=== PATIENT | male | born 1955 | race African-American/Black ===

== ENCOUNTER 2019-12-18 08:48 | Emergency (ER) | payer OTHER ==
[~2019-12-18] VITALS: Ht 185.4 cm; Wt 94.0 kg
[2019-12-18] MEDS: IV NORMAL SALINE 1,000ML 1,000 ML IV ONE (09:18)
--- NOTE | 2019-12-18 09:25 | PHYS DOC ---
General Adult EDM: Chief Complaint: HYPERGLYCEMIA HPI: HPI: 64-year-old male presents with concerns about his blood sugar. The patient takes his metformin every day, but does not obese take his atorvastatin or his Invokana. He has been urinating a lot during the day and night. He feels sluggish and tired. He is in the process of establishing with a new primary care physician here in town. He is just feeling rundown and thought he should come get things checked out. He denies fever chills. He has no other symptoms of illness. Review of Systems: Review of Systems: Constitutional: fatigue. Denies fever or chills Eyes: Denies change in visual acuity HENT: Denies nasal congestion or sore throat Respiratory: Denies cough or shortness of breath Cardiovascular: Denies chest pain or edema GI: Denies abdominal pain, nausea, vomiting, bloody stools or diarrhea : Urinary frequency. Denies dysuria Musculoskeletal: Denies back pain or joint pain Integument: Denies rash Neurologic: Denies headache, focal weakness or sensory changes Endocrine: Denies polyuria or polydipsia Lymphatic: Denies swollen glands Psychiatric: Denies depression or anxiety Heart Score: Risk Factors: Risk Factors: DM, Current or recent (<one month) smoker, HTN, HLP, family history of CAD, obesity. Risk Scores: Score 0 - 3: 2.5% MACE over next 6 weeks - Discharge Home Score 4 - 6: 20.3% MACE over next 6 weeks - Admit for Clinical Observation Score 7 - 10: 72.7% MACE over next 6 weeks - Early Invasive Strategies Current Medications: Current Meds: Current Medications Medications (Trade) Dose Ordered Sig/Jesica Start Time Stop Time Status Last Admin Dose Admin Sodium Chloride 1,000 ml @ 1,000 mls/hr 1X ONCE 12/18/19 09:00 12/18/19 09:59 12/18/19 09:18 1,000 MLS/HR Allergies: Allergies: Allergies Coded Allergies Type Severity Reaction Last Updated Verified No Known Drug Allergies 12/18/19 No Physical Exam: PE: Constitutional: Well developed, well nourished, no acute distress, non-toxic appearance. [] HENT: Normocephalic, atraumatic, bilateral external ears normal, oropharynx moist, no oral exudates, nose normal. [] Eyes: PERRLA, EOMI, conjunctiva normal, no discharge. [] Neck: Normal range of motion, no tenderness, supple, no stridor. [] Cardiovascular:Heart rate regular rhythm, no murmur [] Lungs & Thorax: Bilateral breath sounds clear to auscultation [] Abdomen: Bowel sounds normal, soft, no tenderness, no masses, no pulsatile masses. [] Skin: Warm, dry, no erythema, no rash. [] Back: No tenderness, no CVA tenderness. [] Extremities: No tenderness, no cyanosis, no clubbing, ROM intact, no edema. [] Neurologic: Alert and oriented X 3, normal motor function, normal sensory function, no focal deficits noted. [] Psychologic: Affect normal, judgement normal, mood normal. [] Current Patient Data: Labs: Laboratory Tests Test 12/18/19 09:00 Glucose (Fingerstick) 279 mg/dL (70-99) H EKG: EKG: [] Radiology/Procedures: Radiology/Procedures: [] Course & Med Decision Making: Course & Med Decision Making Pertinent Labs and Imaging studies reviewed. (See chart for details) The patient's labs are unremarkable except for an elevated blood sugar and a slightly elevated creatinine. His anion gap is normal. The patient's urinalysis is negative for infection but he is spilling significant glucose. I believe the patient's symptoms are related to his uncontrolled diabetes. I have encouraged him to take his medications as prescribed and to follow-up closely with his physician once he gets 1 established. He is stable for discharge at this time. [] Sasha Disclaimer: Sasha Disclaimer: This electronic medical record was generated, in whole or in part, using a voice recognition dictation system. Departure Departure: Impression: Primary Impression: Hyperglycemia Disposition: HOME, SELF-CARE Condition: STABLE Referrals: PCP,JUNG (PCP) Patient Instructions: Hyperglycemia, [id number] ARMIN RAJPUT DO Dec 18, 2019 09:25
[2019-12-18 09:36] LABS: BASO % 1 % (0-3); EOS % 0 % (0-3); HEMATOCRIT 51.5 % (39.0-53.0); HEMOGLOBIN 17.4 g/dL (13.0-17.5); LYMPH # 0.7 x10^3/uL (1.0-4.8); LYMPH % 13 % (24-48); MEAN CORPUSCULAR HEMOGLOBIN 28 pg (25-35); MEAN CORPUSCULAR HGB CONC 34 g/dL (31-37); MEAN CORPUSCULAR VOLUME 83 fL (79-100); MONO # 0.5 x10^3/uL (0.0-1.1); MONO % 10 % (0-9); NEUT # 3.9 x10^3uL (1.8-7.7); NEUT % 76 % (31-73); PLATELET COUNT 219 x10^3/uL (140-400); RED BLOOD COUNT 6.19 x10^6/uL (4.30-5.70); RED CELL DISTRIBUTION WIDTH 12.4 % (11.5-14.5); WHITE BLOOD COUNT 5.1 x10^3/uL (4.0-11.0)
[2019-12-18 09:42] LABS: CALCIUM 9.4 mg/dL (8.5-10.1); CREATININE 1.4 mg/dL (0.7-1.3); GFR 61.9
[2019-12-18 09:43] LABS: POTASSIUM 4.5 mmol/L (3.5-5.1)
[2019-12-18 09:48] LABS: ALBUMIN 3.1 g/dL (3.4-5.0); ALBUMIN/GLOBULIN RATIO 0.6 (1.0-1.7); TOTAL BILIRUBIN 0.7 mg/dL (0.2-1.0); TOTAL PROTEIN 7.9 g/dL (6.4-8.2)
[2019-12-18 12:27] VITALS: BP 133/74
[2019-12-18 12:27] LABS: COLOR,URINE YELLOW
[2019-12-18 12:28] LABS: BACTERIA,URINE 0 /HPF (0-FEW); BILIRUBIN,URINE NEG (NEG); CLARITY,URINE CLEAR; GLUCOSE,URINE >=1000 mg/dL (NEG); GRANULAR CASTS,URINE FEW /HPF; NITRITE,URINE NEG (NEG); RBC,URINE OCC /HPF (0-2); SQUAMOUS EPITHELIAL CELL,UR FEW /LPF; UROBILINOGEN,URINE 0.2 mg/dL (0.2 mg/dL)
== END 2019-12-18 13:20 | disposition home or self-care (01) ==
LOC: ER 08:48
DX: E11.65 Type 2 diabetes mellitus with hyperglycemia (principal)
CPT/HCPCS: 36415; 80053; 81001; 82947; 85025; 96360; 99285-25; J7030